=== PATIENT | male | born 1980 | race African-American/Black ===

== ENCOUNTER 2016-10-05 09:22 | Emergency (ER) | payer OTHER ==
[~2016-10-05] VITALS: Ht 188 cm; Wt 114.0 kg
[~2016-10-05 09:22] MED LIST: NAPR500 PO
[2016-10-05 09:32] VITALS: BP 166/110; PULSE 81; RESP 18; TEMP 97.9; O2SAT 98
[2016-10-05 10:08] VITALS: O2SAT 98
--- NOTE | 2016-10-05 10:14 | PD ---
HPI Chief Complaint: Chest Pain Time Seen by Provider: 10:05 Travel History International Travel<30 days: No Contact w/Intl Traveler<30days: No Traveled to known affect area: No History of Present Illness HPI Patient presents with intermittent chest pain that occurs at rest and with activity. He does not exercise regularly. Denies any history of hypertension or hyperlipidemia. No personal cardiac history. Nonsmoker. Nondiabetic. No family history of cardiac disease. Denies radiation or diaphoresis. Last for 15-30 seconds. States he is unsure if this is muscular or cardiac. PFSH Past Medical History Diminished Hearing: No Hiatal Hernia: Yes Kidney Stones: Yes Medical other: Yes (HERNIATED DISC BACK) Immunizations Current: Yes Influenza Vaccination: No Past Surgical History Surgical History: No Previous Surgery Social History Alcohol Use: No Tobacco Use: No Substance Use: Yes (former marijuana) Allergies-Medications (Allergen,Severity, Reaction): Coded Allergies: No Known Allergies (Verified , 06/13/16) Reported Meds & Prescriptions Reported Meds & Active Scripts Active No Active Prescriptions or Reported Medications Review of Systems General / Constitutional: No: Fever Eyes: No: Visual changes HENT: No: Headaches Cardiovascular: Positive: Chest Pain or Discomfort Respiratory: No: Shortness of Breath Gastrointestinal: No: Abdominal Pain Genitourinary: No: Dysuria Musculoskeletal: No: Pain Skin: No Rash Neurologic: No: Weakness Psychiatric: No: Depression Endocrine: No: Polydipsia Hematologic/Lymphatic: No: Easy Bruising Physical Exam Narrative GENERAL: Well-nourished, well-developed patient. SKIN: Warm and dry. HEAD: Normocephalic. EYES: No scleral icterus. No injection or drainage. NECK: Supple, trachea midline. No JVD or lymphadenopathy. CARDIOVASCULAR: Regular rate and rhythm without murmurs, gallops, or rubs. RESPIRATORY: Breath sounds equal bilaterally. No accessory muscle use. GASTROINTESTINAL: Abdomen soft, non-tender, nondistended. MUSCULOSKELETAL: No cyanosis, or edema. BACK: Nontender without obvious deformity. No CVA tenderness. Data Data Last Documented VS Vital Signs Date Time Temp Pulse Resp B/P Pulse Ox O2 Delivery O2 Flow Rate FiO2 10/05/16 10:32 69 18 159/105 98 Room Air 168/106 10/05/16 09:32 97.9 Orders Electrocardiogram (10/05/16 10:05) Ckmb (Isoenzyme) Profile (10/05/16 10:05) Complete Blood Count With Diff (10/05/16 10:05) Comprehensive Metabolic Panel (10/05/16 10:05) Magnesium (Mg) (10/05/16 10:05) Prothrombin Time / Inr (Pt) (10/05/16 10:05) Act Partial Throm Time (Ptt) (10/05/16 10:05) Troponin I (10/05/16 10:05) Chest, Single Ap (10/05/16 10:05) Ecg Monitoring (10/05/16 10:05) Bilateral Bp Monitoring (10/05/16 10:05) Iv Access Insert/Monitor (10/05/16 10:05) Oximetry (10/05/16 10:05) Oxygen Administration (10/05/16 10:05) Aspirin (Aspirin) (10/05/16 10:15) Sodium Chloride 0.9% Flush (Ns Flush) (10/05/16 10:15) CKMB (10/05/16 10:15) CKMB% (10/05/16 10:15) Labs Laboratory Tests Test 10/05/16 10:15 White Blood Count 5.4 TH/MM3 Red Blood Count 4.16 MIL/MM3 Hemoglobin 12.5 GM/DL Hematocrit 37.1 % Mean Corpuscular Volume 89.3 FL Mean Corpuscular Hemoglobin 30.1 PG Mean Corpuscular Hemoglobin 33.7 % Concent Red Cell Distribution Width 11.5 % Platelet Count 220 TH/MM3 Mean Platelet Volume 8.2 FL Neutrophils (%) (Auto) 65.2 % Lymphocytes (%) (Auto) 23.2 % Monocytes (%) (Auto) 9.5 % Eosinophils (%) (Auto) 1.7 % Basophils (%) (Auto) 0.4 % Neutrophils # (Auto) 3.5 TH/MM3 Lymphocytes # (Auto) 1.3 TH/MM3 Monocytes # (Auto) 0.5 TH/MM3 Eosinophils # (Auto) 0.1 TH/MM3 Basophils # (Auto) 0.0 TH/MM3 CBC Comment DIFF FINAL Differential Comment Prothrombin Time 10.8 SEC Prothromb Time International 1.0 RATIO Ratio Activated Partial 27.5 SEC Thromboplast Time Sodium Level 143 MEQ/L Potassium Level 3.8 MEQ/L Chloride Level 105 MEQ/L Carbon Dioxide Level 28.7 MEQ/L Anion Gap 9 MEQ/L Blood Urea Nitrogen 14 MG/DL Creatinine 0.97 MG/DL Estimat Glomerular Filtration 105 ML/MIN Rate Random Glucose 97 MG/DL Calcium Level 8.6 MG/DL Magnesium Level 2.1 MG/DL Total Bilirubin 0.5 MG/DL Aspartate Amino Transf 15 U/L (AST/SGOT) Alanine Aminotransferase 32 U/L (ALT/SGPT) Alkaline Phosphatase 46 U/L Total Creatine Kinase 158 U/L Creatine Kinase MB 0.8 NG/ML Troponin I LESS THAN 0.02 NG/ML Total Protein 7.7 GM/DL Albumin 3.8 GM/DL [facility] Medical Decision Making Medical Screen Exam Complete: Yes Emergency Medical Condition: Yes Differential Diagnosis ACS, atypical chest pain, musculoskeletal, reflux Narrative Course Assessment and plan discussed with patient and at bedside. EKG sinus rhythm rate of 77. Chest x-ray reveals no acute cardiopulmonary process. Labs reviewed. Cardiac enzymes negative. Diagnosis Primary Impression: Chest discomfort Additional Impression: Anemia Qualified Code: D64.9 - Anemia, unspecified type Additional Instructions: Encouraged to follow up with PCP. Continue with regular exercise. Med/Other Pt SpecificInfo: No Meds Exist/No RX given Scripts No Active Prescriptions or Reported Meds Disposition: 01 DISCHARGE HOME Condition: Good Ivan Boyce MD Oct 05, 2016 10:14
[2016-10-05] MEDS ORDERED: ASPIRIN 325 MG TAB PO ONE (10:15)
[2016-10-05] MEDS ORDERED: SODIUM CHLORIDE 0.9% FLUSH 5 ML FLUSH IVF PRN (10:15)
[2016-10-05 10:25] LABS: AUTOMATED NEUTROPHIL # 3.5 TH/MM3 (1.8-7.7); BASOPHIL % 0.4 % (0.0-2.0); EOSINOPHIL # 0.1 TH/MM3 (0-0.4); EOSINOPHIL % 1.7 % (0.0-4.0); HEMATOCRIT 37.1 % (39.0-51.0); HEMO FLAGS DIFF FINAL; LYMPH % 23.2 % (9.0-44.0); LYMPHOCYTE # 1.3 TH/MM3 (1.0-4.8); MEAN CELL VOLUME 89.3 FL (80.0-100.0); MEAN CORPUSCULAR HEMOGLOBIN 30.1 PG (27.0-34.0); MEAN CORPUSCULAR HGB CONC 33.7 % (32.0-36.0); MONO % 9.5 % (0.0-8.0); NEUT % 65.2 % (16.0-70.0); PLATELET COUNT 220 TH/MM3 (150-450); RED BLOOD COUNT 4.16 MIL/MM3 (4.50-5.90); RED CELL DISTRIBUTION WIDTH 11.5 % (11.6-17.2); WHITE BLOOD COUNT 5.4 TH/MM3 (4.0-11.0)
[2016-10-05 10:32] VITALS: BP_SYST 159; BP_SYST 168; BP_DIAS 105; BP_DIAS 106; PULSE 69; RESP 18; O2SAT 98
[2016-10-05 10:33] LABS: CHLORIDE 105 MEQ/L (98-107); POTASSIUM 3.8 MEQ/L (3.5-5.1); SODIUM (NA) 143 MEQ/L (136-145)
[2016-10-05 10:37] LABS: ANION GAP 9 MEQ/L (5-15); APTT (PATIENT) 27.5 SEC (24.3-30.1); BICARBONATE 28.7 MEQ/L (21.0-32.0); BLOOD UREA NITROGEN 14 MG/DL (7-18); MAGNESIUM 2.1 MG/DL (1.5-2.5); PROTHROMBIN TIME - PATIENT 10.8 SEC (9.8-11.6)
[2016-10-05 10:40] LABS: ALT (GPT) 32 U/L (12-78); AST (GOT) 15 U/L (15-37); GLOMERULAR FILTRATION RATE 105 ML/MIN (>89)
[2016-10-05 10:41] LABS: TOTAL BILIRUBIN ADULT 0.5 MG/DL (0.2-1.0)
[2016-10-05 10:42] LABS: CREATINE KINASE 158 U/L (39-308)
[2016-10-05 10:43] LABS: ALKALINE PHOSPHATASE 46 U/L (45-117)
--- NOTE | 2016-10-05 10:49 | RADHPO ---
EXAM DATE/TIME: 10/05/2016 10:23 [facility] COMPARISON: CHEST SINGLE AP, May 10, 2013, 21:00. INDICATIONS : Irregular heart rate, chest discomfort, off and on for 1 week MEDICAL HISTORY : None. SURGICAL HISTORY : None. ENCOUNTER: Initial ACUITY: 1 week PAIN SCORE: 3/10 LOCATION: Bilateral chest FINDINGS: A single view of the chest demonstrates the lungs to be symmetrically aerated without evidence of mas s, infiltrate or effusion. The cardiomediastinal contours are unremarkable. Osseous structures are intact. CONCLUSION: Normal examination. Sacha Godoy MD on October 05, 2016 at 10:47 Board Certified Radiologist. This report was verified electronically.
[2016-10-05 10:55] LABS: CKMB 0.8 NG/ML (0.5-3.6)
[2016-10-05 11:13] VITALS: BP 160/88
--- NOTE | 2016-10-06 14:59 | EKG ---
Date Performed: 10/05/2016 Time Performed: 09:24:22 PTAGE: 36 years EKG: Sinus rhythm . Normal ECG Compared to prior tracing no significant change PREVIOUS TRACING : 11/26/2014 11.30 DOCTOR: Meghann Del Toro Interpretating Date/Time 10/06/2016 14:52:39
== END 2016-10-05 11:34 | disposition home or self-care (01) ==
LOC: PHED 09:22
DX: D64.9 Anemia, unspecified (principal); R07.89 Other chest pain
CPT/HCPCS: 71010; 80053; 82550; 82552; 83735; 84484; 85025; 85610; 85730; 93005

== ENCOUNTER 2017-08-30 22:42 | Emergency (ER) | payer OTHER ==
[~2017-08-30] VITALS: Ht 188 cm; Wt 114.0 kg
[2017-08-30 22:51] VITALS: BP 172/97; PULSE 109; RESP 18; TEMP 98.6
[2017-08-30] MEDS ORDERED: OSEL75 PO (23:24)
--- NOTE | 2017-08-30 23:24 | PD ---
HPI Chief Complaint: Cold / Flu Symptoms Time Seen by Provider: 23:19 Travel History International Travel<30 days: No Contact w/Intl Traveler<30days: No Traveled to known affect area: No History of Present Illness HPI The patient is a 37-year-old male that was here with his last night for the same symptoms that he has now for 24 hours. The was positive for influenza A. The patient complains of the same symptoms his has with some possible low-grade fever, nonproductive cough, chills and congestion and slight sore throat. The patient does not have nausea, vomiting or diarrhea. [facility] Past Medical History Medical History: Denies Significant Hx Diminished Hearing: No Hiatal Hernia: Yes Kidney Stones: Yes Immunizations Current: Yes Past Surgical History Surgical History: No Previous Surgery Social History Alcohol Use: No Tobacco Use: No Substance Use: Yes (former marijuana) Allergies-Medications (Allergen,Severity, Reaction): Coded Allergies: No Known Allergies (Verified Adverse Reaction, Unknown, 08/30/17) Reported Meds & Prescriptions Reported Meds & Active Scripts Active No Active Prescriptions or Reported Medications Review of Systems Except as stated in HPI: all other systems reviewed are Neg Physical Exam Narrative GENERAL: The patient is alert, oriented 3 in no respiratory distress. His vital signs show blood pressure 172/97 with heart rate 1029 but otherwise are normal. SKIN: Focused skin assessment warm/dry. HEAD: Atraumatic. Normocephalic. EYES: Pupils equal and round. No scleral icterus. No injection or drainage. ENT: No nasal bleeding or discharge. Mucous membranes pink and moist. NECK: Trachea midline. No JVD. CARDIOVASCULAR: Regular rate and rhythm. No murmur appreciated. RESPIRATORY: No accessory muscle use. Clear to auscultation. Breath sounds equal bilaterally. Lungs show no wheezing. GASTROINTESTINAL: Abdomen soft, non-tender, nondistended. Hepatic and splenic margins not palpable. MUSCULOSKELETAL: No obvious deformities. No clubbing. No cyanosis. No edema. NEUROLOGICAL: Awake and alert. No obvious cranial nerve deficits. Motor grossly within normal limits. Normal speech. PSYCHIATRIC: Appropriate mood and affect; insight and judgment normal. Data Data Last Documented VS Vital Signs Date Time Temp Pulse Resp B/P (MAP) Pulse Ox O2 Delivery O2 Flow Rate FiO2 08/30/17 22:51 98.6 109 18 172/97 (122) [facility] Medical Decision Making Medical Screen Exam Complete: Yes Emergency Medical Condition: Yes Medical Record Reviewed: Yes Differential Diagnosis Flu syndrome, nonspecific viral syndrome Narrative Course The patient likely has the flu syndrome. Even if we tested him and he was found negative I'm not sure that I would believe the result, the result. The patient will be given Tamiflu. He should follow-up with his primary care physician this week. Diagnosis Primary Impression: Influenza A Additional Instructions: The Tamiflu is taken one tablet twice daily for 5 days. We will give you the first dose tonight. Follow-up this week with your primary care physician. Med/Other Pt SpecificInfo: Prescription(s) given Scripts Oseltamivir (Tamiflu) 75 Mg Cap 75 MG PO BID for Mgmt Viral Infection for 5 Days, #10 CAP 0 Refills Prov: Jose Luis Hernandes MD 08/30/17 Disposition: 01 DISCHARGE HOME Condition: Stable Jose Luis Hernandes MD Aug 30, 2017 23:24
[2017-08-30] MEDS ORDERED: OSELTAMIVIR PHOSPHATE 75 MG CAP PO ONE (23:30)
== END 2017-08-30 23:39 | disposition home or self-care (01) ==
LOC: PHED 22:42
DX: J09.X2 Influenza due to identified novel influenza A virus with other respiratory manifestations (principal)
CPT/HCPCS: 99283

== ENCOUNTER 2017-09-06 21:14 | Emergency (ER) | payer OTHER ==
[~2017-09-06] VITALS: Ht 188 cm; Wt 112.2 kg
[~2017-09-06 21:14] MED LIST changes: -NAPR500 PO; +OSEL75 PO
[2017-09-06 21:19] VITALS: BP 161/108; PULSE 92; RESP 18; TEMP 97.9; O2SAT 96
[2017-09-06] MEDS ORDERED: AMLO5TAB2 PO (21:32)
[2017-09-06] MEDS ORDERED: DOXY100C PO (21:32)
[2017-09-06] MEDS ORDERED: BENZ100 PO (21:32)
[2017-09-06] MEDS ORDERED: VENTAER INH (21:42)
[2017-09-06 21:49] VITALS: BP 160/105
--- NOTE | 2017-09-06 21:54 | PD ---
HPI Chief Complaint: Cold / Flu Symptoms Time Seen by Provider: 21:41 Travel History International Travel<30 days: No Contact w/Intl Traveler<30days: No Traveled to known affect area: No History of Present Illness HPI 37-year-old male presents to the emergency department by private transportation for evaluation of cough. Patient is also here because of concern for adverse reaction to medication. Patient was recently diagnosed with flu and completed a course of Tamiflu. Patient continued to have persistent cough no shortness of breath. Patient had no fever. Patient's had no yellow-green phlegm production. Due to his persistent cough he decided to go to the urgent care where he was diagnosed with bronchitis and given a prescription for Tessalon Perles and doxycycline. Patient states that he has not had any adverse response to the Tessalon Perles however has taken 2 doses of doxycycline after each dose of doxycycline he feels like his throat is tight or his throat is dry and he is concerned he is having an adverse reaction to this medication. Patient has not developed any lip or tongue or throat swelling patient has not reported any stridor or hoarseness patient's voiced no shortness of breath or wheezing patient had no chest pain also no near syncope syncope abdominal pain or urticaria. PFSH Past Medical History Narrative Medical Hypertension kidney stones marijuana use nursing notes reviewed; Cardiovascular Problems: Yes (HTN) Diminished Hearing: No Hiatal Hernia: Yes Hypertension: Yes Kidney Stones: Yes Immunizations Current: Yes Tetanus Vaccination: > 5 Years Influenza Vaccination: No Past Surgical History Surgical History: No Previous Surgery Social History Alcohol Use: No Tobacco Use: No Substance Use: Yes (former marijuana) Allergies-Medications (Allergen,Severity, Reaction): Coded Allergies: lisinopril (Verified Allergy, Severe, Anaphylaxis, 09/06/17) Reported Meds & Prescriptions Reported Meds & Active Scripts Active Reported Tessalon Perles (Benzonatate) 100 Mg Cap 100 Mg PO TID PRN Doxycycline Hyclate 100 Mg Cap 100 Mg PO BID Amlodipine (Amlodipine Besylate) 5 Mg Tab 5 Mg PO DAILY Review of Systems Except as stated in HPI: all other systems reviewed are Neg Physical Exam Narrative GENERAL: Well-developed well nourished male no acute distress or respiratory distress no stridor or hoarseness. SKIN: Warm and dry. No urticaria HEAD: Normocephalic. EYES: No scleral icterus. No injection or drainage. ENT: Mucous membranes moist airway is patent no angioedema uvula is midline no erythema no exudative change. NECK: Supple, trachea midline. No JVD or lymphadenopathy. CARDIOVASCULAR: Regular rate and rhythm without murmurs, gallops, or rubs. RESPIRATORY: Breath sounds equal bilaterally. No accessory muscle use. GASTROINTESTINAL: Abdomen soft, non-tender, nondistended. MUSCULOSKELETAL: No cyanosis, or edema. BACK: Nontender without obvious deformity. No CVA tenderness. Data Data Last Documented VS Vital Signs Date Time Temp Pulse Resp B/P (MAP) Pulse Ox O2 Delivery O2 Flow Rate FiO2 09/06/17 21:29 Room Air 09/06/17 21:19 97.9 92 18 161/108 (125) 96 MDM Medical Decision Making Medical Screen Exam Complete: Yes Emergency Medical Condition: Yes Medical Record Reviewed: Yes Differential Diagnosis Adverse medication reaction, cough, reactive airways disease, bronchitis Narrative Course Patient with recent viral syndrome/influenza with persistent cough clinically stable but concerned that symptoms of throat tightness or increased cough with ingesting prescribed doxycycline. No findings for angioedema acute allergic reaction however patient has had no fever or sputum production lung sounds are clear no indication for antibiotic therapy at this time. In view of possible adverse medication response to doxycycline recommend discontinuing doxycycline at this time. Patient is aware his blood pressure is elevated but states he has not taken his blood pressure medication approximately 2 days because he thought perhaps his cough is related to the amlodipine as he had previously been symptomatic to lisinopril with cough. Patient offered his evening dose of amlodipine here in the emergency department but declined stating that he will take his medication when he gets home. Diagnosis Primary Impression: Cough Additional Impressions: Adverse drug effect Qualified Codes: T88.7XXA - Unspecified adverse effect of drug or medicament, initial encounter HTN (hypertension) Referrals: Primary Care Physician call for appointment Patient Instructions: General Instructions Additional Instructions: Increase fluid hydration May use cool mist vaporizer at bedside to help humidify air Use [id number] Chloraseptic spray, lozenges, or warm salt water gargles for symptom relief Use acetaminophen/Tylenol as needed for minor pain or for fever 100.4F or greater Use ibuprofen/Advil/Motrin may use 600 mg as often as every 6 hours or up to maximum dose of 800 mg as often as every 8 hours for fever 100.4F or greater or for discomfort associated with inflammation Use albuterol inhaler as needed for wheezing or cough associated with wheezing May use your prescription for Tessalon Perles for cough suppression Recommend use of [id number] guaifenesin such as Robitussin or Mucinex to help thin mucus secretions Follow-up with your primary care provider Return to the emergency department for any concerns or change in condition Discontinue antibiotic at this time Take your blood pressure medication as prescribed and monitor blood pressure closely and avoid frequent decongestant use Med/Other Pt SpecificInfo: Prescription(s) given, Med Stopped (doxycycline) Scripts Albuterol 18 GM Inh (Ventolin Hfa 18 GM Inh) 90 Mcg/Act Aer 2 PUFF INH Q4-6H Y for SHORTNESS OF BREATH, #1 INHALER 0 Refills Prov: Padmini Elliott MD 09/06/17 Disposition: 01 DISCHARGE HOME Condition: Stable Padmini Elliott MD Sep 06, 2017 21:54
== END 2017-09-06 21:59 | disposition home or self-care (01) ==
LOC: PHEFT 21:14
DX: R05 Cough (principal); T88.7XXA Unspecified adverse effect of drug or medicament, initial encounter; I10 Essential (primary) hypertension; R06.02 Shortness of breath; Z87.442 Personal history of urinary calculi
CPT/HCPCS: 99283